=== PATIENT | male | born 1970 ===

== ENCOUNTER 2022-07-07 09:51 | Outpatient (CLI) | payer BC | END 2022-07-07 10:32 | disposition home or self-care (01) | LOC: RAD 09:51 | DX: J45.909 Unspecified asthma, uncomplicated (principal); J40 Bronchitis, not specified as acute or chronic; F41.9 Anxiety disorder, unspecified ==

== ENCOUNTER 2024-07-05 09:45 | Outpatient (CLI) | payer BC | END 2024-07-05 09:47 | disposition home or self-care (01) | LOC: RAD 09:45 | PROVIDERS: ATTEND General Practice | DX: N20.0 Calculus of kidney (principal); R31.0 Gross hematuria; K40.20 Bilateral inguinal hernia, without obstruction or gangrene, not specified as recurrent; M25.511 Pain in right shoulder ==

== ENCOUNTER 2024-10-23 06:55 | Day surgery (SDC) | payer BC ==
[2024-10-11 11:22] VITALS: BP 122/76
[2024-10-11 11:22] LABS: BASO % 1.1 % (0.1-1.2); EOS # 0.27 (0.04-0.54); EOS % 4.9 % (0.7-7.0); LYMPH # 2.11 (1.18-3.74); LYMPH % 37.9 % (19.3-53.1); MEAN PLATELET VOLUME 10.10 fl (9.4-12.4); MONO # 0.55 (0.24-0.82); MONO % 9.9 % (4.7-12.5); NEUT # 2.55 (1.56-6.13); NEUT % 45.8 % (34.0-71.1); RED CELL DISTRIBUTION WIDTH 11.7 % (11.6-14.4)
[2024-10-11 11:27] LABS: URINE APPEARANCE Clear; URINE BILIRRUBIN Negative (NEGATIVE); URINE BLOOD Negative; URINE COLOR Yellow; URINE GLUCOSE Negative (NEGATIVE); URINE KETONE Negative (NEGATIVE); URINE LEUKOCYTE Negative; URINE NITRATE Negative; URINE PROTEIN Negative (NEGATIVE); URINE UROBILINOGEN 0.2 E.U./dl
[2024-10-11 11:30] LABS: URINE BACTERIA 4.8 uL (0.0-1933); URINE EPITHELIAL CELLS 1.9 uL (0.0-38.8); URINE RBC 6.8 uL (0.0-20.8)
[2024-10-11 11:34] LABS: URINE CAST 0.00 uL (0.0-1.40); URINE WBC 1.5 uL (0.0-23.2)
[2024-10-11 12:09] LABS: INR 1.0
[2024-10-11 12:40] LABS: ALT/SGPT 38.0 U/L (12-78); AST/SGOT 17.0 U/L (15-37); BILIRUBIN TOTAL 0.64 mg/dL (0.3-1.2); BUN CREA RATIO 24.0 (7.0-25.0); CREATININE SERUM 0.84 mg/dL (0.70-1.30); GFR 95.58; GLOBULINA 3.5 G/DL (2.4-3.5); GLUCOSE FASTING 92.0 mg/dL (65-100); OSMOLALITY SERUM 282.0 MOSM/KG (275-295)
[~2024-10-23] VITALS: Ht 188 cm; Wt 100.7 kg
[2024-10-23] MEDS ORDERED: CEFAZOLIN SODIUM 1,000 MG VIAL IV ONE (11:15)
[2024-10-23] MEDS ORDERED: MORPHINE SULFATE 4 MG/ML VIAL IV ONE ×2 (14:50→15:45)
[2024-10-23] MEDS ORDERED: SUGAMMADEX SODIUM 200 MG/2 ML VIAL IV ONE (15:30)
== END 2024-10-23 23:34 | disposition home or self-care (01) ==
LOC: CIR.AMB 06:55
PROVIDERS: ATTEND Surgery
DX: K40.30 Unilateral inguinal hernia, with obstruction, without gangrene, not specified as recurrent (principal)
CPT/HCPCS: 49650; C1781

== ENCOUNTER 2025-02-11 16:05 | Outpatient (CLI) | payer OTHER | END 2025-02-11 16:13 | disposition home or self-care (01) | LOC: RAD 16:05 | DX: R06.02 Shortness of breath (principal); J40 Bronchitis, not specified as acute or chronic ==